=== PATIENT | female | born 1975 | race African-American/Black ===

== ENCOUNTER 2016-06-30 19:34 | Emergency (ER) | payer OTHER ==
--- NOTE | ~2016-06-30 | CR72 ---
[facility] A Service of [facility] RADIOLOGY TEXT RESULTS PATIENT: VICTORINO COBIAN LOCATION: [facility] : [birth year] UNIT #: [id number] AGE: [address]: Uday Markham MD SEX: F ORDER DR: [id number] [facility] [address] [place], [place] [address] [id number] E MR#: [id number] Acc #: [id number] NAME: VICTORINO COBIAN : 1975 SEX: F STUDY DATE/TIME: 06/30/2016 21:23 UNIT: [facility] ROOM: STUDY DESCRIPTION: CR Chest Single View Portable Attending Physician: Familia Markham M.D. Ordering Physician: Antoine Milian M.D. Primary Care Physician: Primary Care Physician No MEDICAL IMAGING REPORT This report is preliminary unless electronic signature is present EXAM Portable chest HISTORY Cough and congestion for 3 days. FINDINGS A single AP portable view of the chest shows both lungs to be clear. The heart is normal in size. The mediastinal contour is normal. No significant bone abnormalities are seen. IMPRESSION Normal portable chest. Dictated by... Miguel Noriega M.D. THIS IS AN ELECTRONICALLY VERIFIED REPORT Miguel Noriega M.D. at 07/01/2016 2:42 PM FABRICIO/trem[place] TD: 07/01/2016 11:42 JOB #: [id number] MEDICAL IMAGING REPORT Page 1 of 1 COPY
--- NOTE | ~2016-06-30 | EKG ---
PATIENT: VICTORINO COBIAN UNIT #: [id number] Ventricular Rate: 67 BPM Atrial Rate: 67 BPM P-R Interval: 120 ms QRS Duration: 90 ms Q-T Interval: 394 ms QTC Calculation(Bezet): 416 ms P [place]: 65 degrees Calculated R [place]: 47 degrees Calculated T [place]: 58 degrees Diagnosis Line: Normal sinus rhythm with sinus arrhythmia Diagnosis Line: Nonspecific T wave abnormality Diagnosis Line: Abnormal ECG Diagnosis Line: When compared with ECG of 25-JAN-2016 14:19, Diagnosis Line: Premature supraventricular complexes are no longer Diagnosis Line: Present Diagnosis Line: Confirmed by ALEXANDRE MONTELONGO MD ([id number]) on 07/02/2016 Diagnosis Line: 5:40:18 AM INTERPRETING MD: JAYDA SY
[~2016-06-30 19:34] MED LIST: ALBUTEROL17 GM; ALBUTEROL17 GM INH; ASTELIN; ATARAX PO; BACTRIM DS TABL1 TAB PO; BCP; CIPRO; DICLOFENAC PO; FLAGYL PO; IBUPROFEN800 MG PO; LEVAQUIN PO; PREDNISONE PO; PRENATAL VITAMI1 TA3 PO; TRAMADOL HCL50 M1 PO; ULTRAM PO; UNISOM25 MG PO; VITAMIN B-625 MG PO; ZITHROMAX PO; ZOFRAN PO
[2016-06-30 21:04] LABS: POC - CKMB <1.0 ng/mL (0.0-7.9); POC - TROPONIN <0.05 ng/mL (<=0.05)
[2016-06-30 21:19] LABS: BASOPHIL# 0.1 X10e3 (0-0.3); BASOPHIL% 1.1 % (0-2.5); DIFF IND NO; EOSINOPHIL# 0.5 X10e3 (0-0.7); EOSINOPHIL% 6.7 % (0.0-7.0); HEMATOCRIT 39.8 % (35.0-45.0); HEMOGLOBIN 13.5 gm/dL (12.0-16.0); LYMPHOCYTE# 2.2 X10e3 (1.0-3.5); LYMPHOCYTE% 27.9 % (17.0-45.0); MEAN CELL VOLUME 94.4 FL (83-96); MEAN CORPUSCULAR HEMOGLOBIN 32.1 PG (28-34); MEAN PLATELET VOLUME 9.5 FL (6.5-11.5); MONOCYTE% 13.3 % (3.0-12.0); PLATELET COUNT 169 X10e3 (140-420); RED BLOOD COUNT 4.22 X10e (3.90-5.30); RED CELL DISTRIBUTION WIDTH 12.9 % (11.0-15.5); WHITE BLOOD COUNT 7.8 X10e3 (4.0-10.5)
[2016-06-30 21:34] LABS: CALCIUM SERUM 8.9 mg/dL (8.4-10.2); GLOM FILT RATE Estimated 81.6 mL/min (>60); POTASSIUM 3.5 mmol/L (3.5-5.1)
[2016-06-30 21:52] LABS: PARTIAL THROMBOPLASTIN TIME 25.6 SECONDS (23.5-31.3); PROTHROMBIN TIME (PATIENT) 10.4 SECONDS (9.6-11.5)
[2016-06-30 22:29] LABS: POC - CKMB <1.0 ng/mL (0.0-7.9); POC - TROPONIN <0.05 ng/mL (<=0.05)
== END 2016-06-30 23:55 | disposition home or self-care (01) ==
LOC: CED 19:34
PROVIDERS: Emergency Medicine
DX: R07.89 Other chest pain (principal); F17.210 Nicotine dependence, cigarettes, uncomplicated; Z91.013 Allergy to seafood; Z79.899 Other long term (current) drug therapy
CPT/HCPCS: 36415; 71010; 80048; 82553; 84484; 85025; 85379; 85610; 85730; 93005; 94640; 96374; 99284; J1885

== ENCOUNTER 2016-08-15 09:03 | Emergency (ER) | payer OTHER ==
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
== END 2016-08-15 10:45 | disposition home or self-care (01) ==
LOC: CED 09:03 → CFTX 09:03
DX: S90.31XA Contusion of right foot, initial encounter (principal); J45.909 Unspecified asthma, uncomplicated; F41.9 Anxiety disorder, unspecified; F17.200 Nicotine dependence, unspecified, uncomplicated; W22.8XXA Striking against or struck by other objects, initial encounter; Y93.11 Activity, swimming; Y92.009 Unspecified place in unspecified non-institutional (private) residence as the place of occurrence of the external cause; Y99.8 Other external cause status
CPT/HCPCS: 29405; 73630; 99283